=== PATIENT | male | born 1955 | race Caucasian/White ===

== ENCOUNTER 2018-10-15 15:54 | Emergency (ER) | payer OTHER ==
--- OUTSIDE RECORDS SUMMARY | 2018-10-15 16:07 | XMS REPORT ---
:1955 Author Organization [facility] Address [address] [place] [address] Dr. Meléndez [address] [place] [id number] Care Team Providers Name Role Phone Unavailable Unavailable Unavailable Problems This patient has no known problems. Allergies, Adverse Reactions, Alerts This patient has no known allergies or adverse reactions. Medications This patient has no known medications.
--- NOTE | 2018-10-15 17:25 | ER ---
Nurse's Notes [facility] Name: Chan Khalil Age: 62 yrs Sex: Male : 1955 Arrival Date: 10/15/2018 Time: 15:59 Bed 4 Private MD: Diagnosis: Adverse effect of medication Presentation: 10/15 16:02 Presenting complaint: Patient states: Patient family is concerned because the patient aj has been groggy and not himself since starting a new anti seizure medication in September. Seen by PCP for this complaint and ordered to continue his medication. Transition of care: patient was not received from another setting of care. Onset of symptoms was September 28, 2018. Risk Assessment: Do you want to hurt yourself or someone else? Patient reports no desire to harm self or others. Care prior to arrival: None. 16:02 Method Of Arrival: Ambulatory aj 16:02 Acuity: LIBRA 3 aj 17:00 Initial Sepsis Screen: Does the patient meet any 2 criteria? No. Patient's initial ph sepsis screen is negative. Does the patient have a suspected source of infection? No. Patient's initial sepsis screen is negative. Triage Assessment: 16:05 General: Appears in no apparent distress. comfortable, Behavior is calm, cooperative, aj appropriate for age. Pain: Denies pain. Neuro: Level of Consciousness is awake, alert, obeys commands, Oriented to person, place, time, situation, Appropriate for age Gait is unsteady. Respiratory: Airway is patent Respiratory effort is even, unlabored, Respiratory pattern is regular, symmetrical. Derm: Skin is intact, is healthy with good turgor, Skin is pink, warm \T\ dry. normal. Historical: - Allergies: 16:05 No Known Allergies; aj - Immunization history:: Adult Immunizations unknown. - Social history:: Smoking status: Patient/guardian denies using tobacco. - Ebola Screening: : No symptoms or risks identified at this time. Screenin:00 Abuse screen: Denies threats or abuse. Denies injuries from another. Nutritional ph screening: No deficits noted. Tuberculosis screening: No symptoms or risk factors identified. Fall Risk None identified. Assessment: 17:00 General: Appears in no apparent distress. comfortable, slender, well groomed, Behavior ph is calm, cooperative, appropriate for age. Pain: Denies pain. Neuro: Level of Consciousness is awake, alert, obeys commands, Oriented to person, place, time, situation. Cardiovascular: Reports fatigue, Denies chest pain, nausea, vomiting, Capillary refill < 3 seconds in bilateral fingers Patient's skin is warm and dry. Respiratory: Airway is patent Respiratory effort is even, unlabored, Respiratory pattern is regular, symmetrical. GI: Patient currently denies abdominal pain, nausea, vomiting. Derm: Skin is intact, is healthy with good turgor, Skin is pink, warm \T\ dry. Musculoskeletal: Circulation, motion, and sensation intact. Range of motion: intact in all extremities. 17:50 Reassessment: Patient appears in no apparent distress at this time. Patient and/or ph family updated on plan of care and expected duration. Pain level reassessed. Patient is alert, oriented x 3, equal unlabored respirations, skin warm/dry/pink. Pt d/c home w/ family. Vital Signs: 16:05 BP 138 / 73; Pulse 78; Resp 18; Temp 97.9; Pulse Ox 99% on R/A; Weight 72.57 kg; Height aj 5 ft. 4 in. (162.56 cm); 17:30 BP 127 / 80; Pulse 74; Resp 18; Temp 98.0; Pulse Ox 100% on R/A; ph 16:05 Body Mass Index 27.46 (72.57 kg, 162.56 cm) ED Course: 15:59 Patient arrived in ED. tw3 16:04 Triage completed. aj 16:05 Arm band placed on right wrist. aj 16:52 Tony Ruiz MD is Attending Physician. ps1 17:00 Patient has correct armband on for positive identification. Bed in low position. Call ph light in reach. Side rails up X 1. bus driver/monitor on. Pulse ox on. NIBP on. Door closed. Noise minimized. 17:40 Corrie Burdick, STEW is Primary Nurse. ph 17:50 No provider procedures requiring assistance completed. Patient did not have IV access ph during this emergency room visit. Administered Medications: No medications were administered Outcome: 17:24 Discharge ordered by . ps1 17:51 Patient left the ED. ph 17:51 Discharged to home ambulatory, with family. ph 17:51 Condition: good 17:51 Discharge instructions given to patient, family, Instructed on discharge instructions, follow up and referral plans. medication usage, Demonstrated understanding of instructions, follow-up care, medications, Prescriptions given X 1. Signatures: Edwina Pierce RN RN aj Hall, Patricia, RN RN Tk, Tia tw3 Tony Ruiz MD MD ps1 Corrections: (The following items were deleted from the chart) 16:06 16:02 Acuity: LIBRA [address]
--- NOTE | 2018-10-15 17:25 | EDPHYS ---
Physician Documentation [facility] Name: Chan Khalil Age: 62 yrs Sex: Male : 1955 Arrival Date: 10/15/2018 Time: 15:59 Bed 4 Private MD: ED Physician Tony Ruiz HPI: 10/15 17:17 This 62 yrs old Male presents to ER via Ambulatory with complaints of ps1 MEdication Side Effect. 17:17 patient has a hx of Seizure, Bipolar, and back pain. patient was seen and evaluated by ps1 myself in [place] for 1st time seizure and was started on Keppra. Patient was referred to [facility] (Neuro) and has not followed up. Patient is additionally on gabapentin, clonazepam, divalproex, and quietapine. Family states that the patient is hypersomnolent and has not been acting himself. He was seen and evaluated by Jessica and no medication changes were done. Family is concerned about medication reaction. He is otherwise in USOH other than fatigue and hypersomnolence. . Historical: - Allergies: 16:05 No Known Allergies; aj - Immunization history:: Adult Immunizations unknown. - Social history:: Smoking status: Patient/guardian denies using tobacco. - Ebola Screening: : No symptoms or risks identified at this time. ROS: 17:17 Constitutional: Negative for fever, chills, and weight loss, Eyes: Negative for injury, ps1 pain, redness, and discharge, Neck: Negative for injury, pain, and swelling, Cardiovascular: Negative for chest pain, palpitations, and edema, Respiratory: Negative for shortness of breath, cough, wheezing, and pleuritic chest pain, Abdomen/GI: Negative for abdominal pain, nausea, vomiting, diarrhea, and constipation, MS/Extremity: Negative for injury and deformity, Skin: Negative for injury, rash, and discoloration, Psych: Negative for depression, anxiety, suicide ideation, homicidal ideation, and hallucinations. 17:17 Neuro: Positive for somnolence. . Exam: 17:17 Constitutional: This is a well developed, well nourished patient who is awake, alert, ps1 and in no acute distress. Head/Face: Normocephalic, atraumatic. Eyes: Pupils equal round and reactive to light, extra-ocular motions intact. Lids and lashes normal. Conjunctiva and sclera are non-icteric and not injected. Chest/axilla: Normal chest wall appearance and motion. Nontender with no deformity. No lesions are appreciated. Cardiovascular: Regular rate and rhythm. No gallops, murmurs, or rubs. Normal PMI, no JVD. No pulse deficits. Respiratory: Lungs have equal breath sounds bilaterally, clear to auscultation and percussion. No rales, rhonchi or wheezes noted. No increased work of breathing, no retractions or nasal flaring. Abdomen/GI: Soft, non-tender, with normal bowel sounds. No distension or tympany. No guarding or rebound. No evidence of tenderness throughout. Skin: Warm, dry with normal turgor. Normal color with no rashes, no lesions, and no evidence of cellulitis. MS/ Extremity: Pulses equal, no cyanosis. Neurovascular intact. Full, normal range of motion. Neuro: Awake and alert, GCS 15, oriented to person, place, time, and situation. Cranial nerves II-XII grossly intact. Sensory grossly intact. Psych: Awake, alert, with orientation to person, place and time. Behavior, mood, and affect are within normal limits. Vital Signs: 16:05 BP 138 / 73; Pulse 78; Resp 18; Temp 97.9; Pulse Ox 99% on R/A; Weight 72.57 kg; Height aj 5 ft. 4 in. (162.56 cm); 17:30 BP 127 / 80; Pulse 74; Resp 18; Temp 98.0; Pulse Ox 100% on R/A; ph 16:05 Body Mass Index 27.46 (72.57 kg, 162.56 cm) MDM: 17:16 Patient medically screened. ps1 17:22 Data reviewed: vital signs, nurses notes, and as a result, I will dc gabapentin and ps1 have patient follow up for reevaluation and keep appointment with neurology. Counseling: I had a detailed discussion with the patient and/or guardian regarding: the historical points, exam findings, and any diagnostic results supporting the discharge/admit diagnosis, to return to the emergency department if symptoms worsen or persist or if there are any questions or concerns that arise at home. Administered Medications: No medications were administered Disposition: 10/15/18 17:24 Discharged to Home. Impression: Adverse effect of medication. - Condition is Stable. - Discharge Instructions: Fatigue. - Prescriptions for Robaxin 500 mg Oral Tablet - take 2 tablet by ORAL route every 6 hours As needed; 40 tablet. - Medication Reconciliation Form, Thank You Letter, Antibiotic Education, Prescription Opioid Use form. - Follow up: Private Physician; When: As needed; Reason: Further diagnostic work-up, Recheck today's complaints, Continuance of care, Re-evaluation by your physician. Follow up: Emergency Department; When: As needed; Reason: Fever > 102 F, Worsening of condition. - Problem is an ongoing problem. - Symptoms are unchanged. Signatures: Edwina Pierce RN RN aj Corrie Burdick RN RN ph Tony Ruiz MD MD ps1 Corrections: (The following items were deleted from the chart) 17:51 17:24 10/15/2018 17:24 Discharged to Home. Impression: Adverse effect of medication. ph Condition is Stable. Forms are Medication Reconciliation Form, Thank You Letter, Antibiotic Education, Prescription Opioid Use. Follow up: Private Physician; When: As needed; Reason: Further diagnostic work-up, Recheck today's complaints, Continuance of care, Re-evaluation by your physician. Follow up: Emergency Department; When: As needed; Reason: Fever > 102 F, Worsening of condition. Problem is an ongoing problem. Symptoms are unchanged. ps1
== END 2018-10-15 17:51 | disposition home or self-care (01) ==
LOC: ER 15:54
DX: T50.905A Adverse effect of unspecified drugs, medicaments and biological substances, initial encounter (principal); Y92.9 Unspecified place or not applicable; R56.9 Unspecified convulsions; F31.9 Bipolar disorder, unspecified
CPT/HCPCS: 99284